=== PATIENT | female | born 1990 | race Caucasian/White ===

== ENCOUNTER 2025-04-08 12:09 | Outpatient (CLI) | payer BC ==
[~2025-04-08 12:09] MED LIST: Gadobenate 529 MG/ML (10ML SDV) ONE; Iopamidol 300 61% 30 ML VIAL ONE
[2025-04-08] MEDS ORDERED: Gadobenate Dimeglumine 2 ML, Sodium Chloride 0.9% 250 ML 10 ML, Iopamidol 8 ML, Lidocai... FS ONE (12:15)
== END 2025-04-08 12:10 | disposition home or self-care (01) ==
LOC: CSHRAD 12:09
PROVIDERS: ATTEND Orthopaedic Surgery
DX: S43.431A Superior glenoid labrum lesion of right shoulder, initial encounter (principal)
CPT/HCPCS: 23350; 77002; A9577; J0166; J7050; Q9967